=== PATIENT | male | born 1965 | race Caucasian/White ===

== ENCOUNTER 2017-04-06 18:16 | Emergency (ER) | payer BC ==
[~2017-04-06] VITALS: Ht 185.4 cm; Wt 104.3 kg
[~2017-04-06 18:16] MED LIST: ACETAZOLAMIDE250 M1 PO; AMITRIPTYLINE 225 MG PO; AMLODIPINE BES10 MG PO; AMLODIPINE10 M2 PO; ASPIR 8181 MG PO; ASPIRIN 81MG TA81 MG PO; BISOPROLOL 5MG T5 MG PO; CLARITIN 10MG T10 MG PO; COSOPT 2%-0.5%10 ML OP; D3-55000 IU PO; DEXILANT60 MG PO; DICLOFENAC SODI75 M2 PO; ESCITALOPRAM 2020 MG PO; GABAPENTIN100 M1 PO; GLIMEPIRIDE 2MG2 MG PO; HYDROCHLOROTH12.5 M1 PO; INSULIN GL100 UNITS/ SC; INVOKANA300 MG PO; JARDIANCE10 MG PO; JARDIANCE25 MG PO; LANSOPRAZOLE30 MG PO; LEVAQUIN500 MG PO; LEXAPRO 20 MG T20 MG PO; LISINOPRIL AND1 TAB PO; LYRICA 100 MG100 MG PO; LYRICA75 MG PO; MONTELUKAST SOD10 MG PO; MOTRIN 400MG.400 MG PO; NORCO 325 MG-51 TAB PO; NOVOLIN 70/30 710 ML SC; NOVOLOG MI100 UNITS/ SC; RANITIDINE HCL150 MG PO; SINGULAIR 10 MG10 MG PO; XALATAN 0.005%2.5 ML OP; ZYRTEC10 M2 PO
--- NOTE | 2017-04-06 18:50 | Urgent Treatment Center Report ---
History of Present Issue Date/Time Seen by Provider 04/06/17 1850 Visit Reason Pt arrived:Walked Presenting Problem:SORE THROAT, BODY ACHES, NON-PRODUCTIVE COUGH, AND FEVER X2 DAYS. Location if Accident: Onset of symptoms date/time:04/04/17 or onset unknown for: Have you (or family members/close friends) recently traveled outside the [place]? N If Yes, where/when: Have you had exposure to infectious disease within the past month? TB? Other? Specify: c/o sore throat, bodyaches, chills, fever w/ Tmax 102.4, mild cough all starting today. Woke up not feeling great but worse this afternoon. Grandson w/ similiar symptoms and sat on patient's lap yesterday. Tylenol and ibuprofen this evening has helped w/ fever. 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 FSBG up to high 500's after injection but 117 this morning. Source patient, family (spouse) Exam Limitations no limitations ALLERGIES Coded Allergies: flurbiprofen (From ANSAID) (I-RASH 12/25/15) Home Medications Reported Medications Diclofenac Sodium 75 MG PO BID #180 Empagliflozin (Jardiance) 25 MG PO DAILY CHOLECALCIFEROL (VITAMIN D3) (Vitamin D3) 5,000 UNITS PO DAILY Aspirin (Aspirin EC 81MG Tab) 81 MG PO DAILY INSULIN GLARGINE (Lantus 3ML Solostar Pen) 40 UNITS SC QHS Pregabalin (Lyrica 100Mg) 100 MG PO QHS #60 Montelukast Sodium 10 MG PO QHS #90 Amlodipine Besylate (Amlodipine Besylate) 10 MG PO DAILY #90 Escitalopram Oxalate (Lexapro 20MG) 20 MG PO DAILY Ins Asp-Prt 70/Asp 30(Nvlogmx) (Novolog Mix 70-30 Flexpen Syrn) 60 UNITS SC QAM #30 Amitriptyline Hcl (Amitriptyline) 50 MG PO QHS Hydrochlorothiazide (Hydrochlorothiazide 12.5MG) 25 MG PO DAILY BISOPROLOL FUMARATE (Bisoprolol 5MG) 10 MG PO DAILY Amitriptyline Hcl (Amitriptyline) 25 MG PO QAM INSULIN NPH HUM/REG INSULIN HM (Novolin 70-30 100 Unit/Ml Vial) 20 UNITS SC NOON INSULIN NPH HUM/REG INSULIN HM (Novolin 70-30 100 Unit/Ml Vial) 60 UNITS SC EVENING Lansoprazole (Lansoprazole) 30 MG PO BID Gabapentin (Gabapentin 100MG) 100 MG PO TID Acetazolamide (Acetazolamide) 250 MG PO QHS Latanoprost (Xalatan 0.005% Soln,Oph) 1 DROP OP QHS DORZOLAMIDE HCL/TIMOLOL (Dorzolamide-Timolol Eye Drops) 1 DROP OP BID History Medical History General CAD? No Angina: No VT: No Hypertension? Yes Hyperlipidemia? Yes CHF? No DVT? No PE? No COPD? No Asthma? No Anemia? No GERD? Yes Gastric ulcers? No GI Bleed? Yes Hernia? No Thyroid Problems? No Hypothyroidism? No CVA? No Seizures? No Diabetes? Yes Insulin Dependent: Yes Insulin Pump: No Home FSBS? Yes Renal Insuffiency? No UTI? No Stones? Yes BPH? Yes GB Disease: Yes Nephritic Syndrome? No Asplenia? No Hepatitis? No Sickle Cell Disease? No Arthritis? No Migraines? No Cataracts? Yes Glaucoma? No MRSA? No HIV? No TB? No Anxiety? Yes Depression? Yes Cancer? Yes Site: COLON More? No Additional hx: 1. Diverticulosis 2. HSV type 1 Immunization HX Ped.Immunizations UTD Yes DT/Tetanus > 10 Years Ago Flu Refused Pneumonia Unknown Surgical Hx Previous Surgery?Y CHOLECYSTECTOMY L. KNEE TURP Colon Procedures Family History Family HX Diabetes Yes CAD No Hypertension Yes Hyperlipidemia Yes Cancer Yes TB No Social History Smoking Hx Smoker: Never Smoker Tobacco: No Packs/day N/A Alcohol Alcohol: No Review of Systems All Other Systems Reviewed and Negative Constitutional see HPI, denies weakness Eyes see HPI ENT denies: ear pain, ear discharge, nose discharge, nose congestion, throat swelling. Respiratory denies shortness of breath, denies wheezing Cardiovascular denies chest pain, denies palpitations Gastrointestinal denies no symptoms reported Musculoskeletal see HPI Skin denies rash Psychiatric/Neurological see HPI Physical Exam Vital Signs Vital Signs Date Time Temp Pulse Resp B/P Pulse O2 O2 Flow FiO2 Ox Delivery Rate 04/06 1828 98.2 96 20 132/73 97 General Appearance normal appearance, no apparent distress Ear, Nose, Throat normal ENT inspection (x/ mild pharyngeal erythema) Neck normal inspection, non-tender, supple, full range of motion Respiratory Status Yes: non productive cough (occasionally in clinic). No: respiratory distress, use of accessory muscles. Lung Sounds anterior: lungs clear. posterior: lungs clear. bilateral: lungs clear. Cardiovascular regular rate/rhythm, no peripheral edema, no murmur Neurologic alert, oriented x 3 Mental status normal mood/affect Skin intact, normal color, warm/dry Lymphatic no adenopathy Medical Decision Making LABS/Meds/Orders Pt receiving controlled substance in ED? No Results/Orders Laboratory Tests 04/06/171906: Group A Strep Screen NOT DETECTED 04/06/171827: Influenza Type A Ag NOT DETECTED, Influenza Type B Ag NOT DETECTED Orders Procedure Date/time Status [facility] STREP SCREEN 04/06 1902 Complete UTC FLU A,B 04/06 1828 Complete Departure Departure Time of Disposition 1930 Disposition DC Home or Self Care(routine) Clinical Impression Primary Impression: Acute pharyngitis Qualifiers: Pharyngitis/tonsillitis etiology: unspecified etiology Qualified Code: J02.9 - Acute pharyngitis, unspecified Condition STABLE Referrals Parmjit LUNA,Kahlil (Family) Follow up IMMEDIATELY for new or worsening symptoms OR no noticeable improvement over the next 48-72 hours. 911 for difficulty breathing or swallowing. Patient Instructions DI for Viral Pharyngitis Additional Instructions * No sign of bacterial infection. Likely viral. Virus can take 7-14 days to run their course * Monitor Temp. Tylenol every 4 hours as needed and/or ibuprofen every 6 hours as needed (as long as your primary care doctor has told you that it is ok to take both) for fever/aches/pain. ER if fever no less than 101 despite tylenol and ibuprofen * Encourage fluids, water, gatorade, powerade, pedialyte if infant/toddler/child * warm salt water gargles * warm fluids * sore throat lozenges * sleep elevated * humidifier/vaporizer * Monitor FSBG closely. Discussed sick day mgmt/monitoring * * Your throat swab was sent for culture. Those results are typically sent to your primary care. Be sure to follow up in 2-3 days if no improvement so they can review those results and treat if necessary. If you don't have primary care, I recommend you get one but in the mean time, you will have to return to a walk in clinic. Follow up IMMEDIATELY for new or worsening symptoms OR no noticeable improvement over the next 48-72 hours. 911 for difficulty breathing or swallowing. Discharge Counseling Counseled pt/family regarding diagnosis, test results, medications/RX, home care, follow up needs at [phone]
--- OUTSIDE RECORDS SUMMARY | 2017-04-06 19:04 | External Medical Summary Rpt ---
Demographics Preferred Language Burkinan Marital Status Unknown Buddhism Affiliation Unknown Race Unknown Ethnic Group Unknown Author Author , Organization [employer] Address Unknown Phone Unavailable Purpose Continuity of Care Document - through 2016 Immunization No patient found.
--- OUTSIDE RECORDS SUMMARY | 2017-04-06 19:04 | External Medical Summary Rpt ---
Author Author [employer], [employer] Organization [employer] Address Unknown Phone Unavailable Results Glucose [Mass/volume] in Capillary blood by Glucometer Observa Value Referen Units Interpr Notes Date tion ce etation Range Glucose 70 - 110 mg/dl High No Mar 16 [Mass/vol informati 2017 ume] in on in 11:10 AM Capillary source blood by data Glucomete r
--- OUTSIDE RECORDS SUMMARY | 2017-04-06 19:04 | External Medical Summary Rpt ---
Demographics Preferred Language Citizen Of [place] Marital Status Unknown Gnosticism Affiliation Unknown Race Unknown Ethnic Group Unknown Author Author , Organization [employer] Address Unknown Phone Unavailable Purpose Continuity of Care Document - through 2016 Immunization No patient found.
--- OUTSIDE RECORDS SUMMARY | 2017-04-06 19:04 | External Medical Summary Rpt ---
Author Author [employer] Organization [employer] Address Unknown Phone Unavailable Purpose Continuity of Care Document - through 2016
[2017-04-06 19:35] VITALS: BP 132/73
== END 2017-04-06 19:38 | disposition home or self-care (01) ==
LOC: UTC 18:16
DX: J02.9 Acute pharyngitis, unspecified (principal)

== ENCOUNTER → 2017-06-18 | Outpatient (CLI) | payer BC ==
--- NOTE | 2017-06-19 06:59 | RADIOLOGY REPORT PS360 ---
MRI-L-SPINE W/O, MRI-3D RENDERING/MYELOGRAM HISTORY: Right-sided low back pain with bilateral leg pain and numbness LUMBAR PAIN ORDERING PHYSICIAN: LEEANN MATTA CRNA PATIENT AGE: 51 years COMPARISON: 05/13/2013 TECHNIQUE: Standard multiplanar multiecho sequences are performed without contrast. 3-D MIP and myelographic images are also rendered and reviewed FINDINGS: Spinal cord ends at the L1 level. T12-L1: Mild degenerative disc disease with slight decrease in the disc space and mild disc desiccation. There are small Schmorl's nodes at T12-L1 and L1-L2 L2-L3: Mild disc desiccation. L3-L4: Mild disc desiccation with some increased T2 signal involving the anterior aspect of the disc nonspecific. L4-L5: Unremarkable. L5-S1: Unremarkable. No disc herniation or canal stenosis. IMPRESSION: 1. There are mild changes at T12-L1 and L1-L2 with mild disc desiccation at L2-L3 and L3-L4. 2. No disc herniation or canal stenosis. 3. No significant change from 05/13/2013
== END ==
LOC: RAD 14:24
DX: M54.5 Low back pain (principal)

== ENCOUNTER → 2017-07-15 | Outpatient (CLI) | payer BC | LOC: LAB 16:22 | DX: N62 Hypertrophy of breast (principal) ==

== ENCOUNTER → 2017-07-22 | Outpatient (CLI) | payer BC ==
--- NOTE | 2017-07-22 15:56 | RADIOLOGY REPORT PS360 ---
MRI-BRAIN W/O HISTORY: ELEVATED PROLACTIN LEVELS, GYNECOMASTIA Patient Age: 51 years: Male Ordering Physician: Kahlil Parnell MD TECHNIQUE: Noncontrast imaging only was performed utilizing Multiplanar, multisequence imaging: FLAIR, T1, T2 weighted images along with axial diffusion/ADC imaging performed on 1.5 T. Siemens, MRI. Additional noncontrast thin section 3 mm coronal T1, T2 weighted fat sat, in sagittal T1 imaging performed on 1.5 T MR.. COMPARISON :MRI of the brain 06/04/2016 FINDINGS . At this visit additional noncontrast thin section images through sella show the sella to be normal size. Pituitary is not enlarged. On Close inspection would note that very slightly generous contour of the posterior margin of pituitary midline and just left of midline. This likely is within normal limits and I'm not convinced reflection the pathology. Dynamic pre and post contrast thin section MRI images of pituitary, would be be suggested if desire to further evaluate for small pituitary microadenoma; if would [employer] exchange architect.. . The remainder the brain with normal anatomy. The cranial cervical junction is normal. The ventricles and basal cisterns appear normal. Minor cerebral atrophy.. ] On sensitive FLAIR suggestion of a small stable very tiny tiny 2.5 mm high signal focus the deep white matter towards right frontal lobe axial image 14,. This is just lateral to the anterior horn right lateral ventricle.. And less evident on coronal. Unimpressive,, most likely reflecting small vessel ischemic focus. In this age.other possibilities considered but unlikely at this barely evident focus . There is a generous perivascular space versus possible tiny old lacunar at the posterior left basal ganglia on axial flair image 14 as well. Mild stable mucosal thickening posterior right maxillary sinus. Left maxillary sinus clear and other paranasal sinuses unremarkable.. Orbits appear satisfactory bilaterally. Opacification LEFT mastoid tip air cells along with other scattered left mastoid air cells reflecting mild mastoid effusion.. This is seen on previous 2016 exam Right mastoid air cells unremarkable IACs appear normal size. Cranial nerve VII and VIII appears satisfactory. IMPRESSION 1. Sella is normal size. Pituitary normal size. Not enlarged. Generous contour posterior particularly within normal limits. Most evident just left of midline Clearly no macro adenoma nor large pituitary lesion evident. However Cannot exclude a microadenoma Dynamic pre and post contrast thin section MRI images of pituitary, would be be suggested if desire to further evaluate for small pituitary microadenoma/- if would [employer] exchange architect.. 2. Stable minor observations -Stable Tiny deep white matter high signal focus right frontal lobe most likely small vessel high signal focus. Generous perivascular space vs tiny old lacune left basal ganglia. It -No prominent findings. No discrete significant appearing lesions. 3. Mild Left mastoid effusion w/ only very slight progression since 2016 & mainly involving left mastoid tip
== END ==
LOC: RAD 13:27
DX: E22.9 Hyperfunction of pituitary gland, unspecified (principal); N62 Hypertrophy of breast

== ENCOUNTER → 2017-08-06 | Outpatient (CLI) | payer BC | LOC: LAB 08-05 11:46 | DX: E22.9 Hyperfunction of pituitary gland, unspecified (principal) ==

== ENCOUNTER → 2017-08-12 | Outpatient (CLI) | payer BC ==
[2017-08-12 09:12] LABS: AEROMONAS NOT DETECTED (NOT DETECTE); ASTROVIRUS NOT DETECTED (NOT DETECTE); CYCLOSPORA CAYETANENSIS NOT DETECTED (NOT DETECTE); E COLI O157 NOT DETECTED (NOT DETECTE); ENTEROAGGREGATIVE E COLI NOT DETECTED (NOT DETECTE); ENTEROPATHOGENIC E COLI NOT DETECTED (NOT DETECTE); ENTEROTOXIGENIC E COLI NOT DETECTED (NOT DETECTE); NOROVIRUS NOT DETECTED (NOT DETECTE); SAPOVIRUS NOT DETECTED (NOT DETECTE); SHIGA-LIKE TOXIN PROD. E COLI NOT DETECTED (NOT DETECTE); SHIGELLA/ENTEROINVASIVE E COLI NOT DETECTED (NOT DETECTE); VIBRIO CHOLERAE NOT DETECTED (NOT DETECTE)
[2017-08-12 09:32] LABS: BUN 7 mg/dL (7-18); GFR (ESTIMATED) 63 ML/MIN (>60)
--- NOTE | 2017-08-13 10:51 | RADIOLOGY REPORT PS360 ---
CT ABD PELVIS W/ CONTRAST CLINICAL INDICATION: Diarrhea, colitis, colon cancer history with urgency, evaluate for colitis and fistula H/O COLON CA,DIARRHEA,R/O COLITIS ORDERING PHYSICIAN: Marin Jane MD PATIENT AGE: 51 years COMPARISON: 09/02/2016 TECHNIQUE: Axial images obtained with sagittal and coronal reformats. PROCEDURE: Oral Contrast: Redicat IV Contrast: 75 mL Isovue-370 . FINDINGS: Small hiatal hernia. Minimal atelectatic or fibrotic changes in the lung bases. There is gynecomastia on the right. Fatty infiltration of the liver. No focal liver lesions. Prior cholecystectomy without biliary dilatation. The spleen, adrenal glands, and pancreas are unremarkable. No renal mass or renal calculi or hydronephrosis evident. Scattered colonic diverticulosis. No evidence of diverticulitis, intestinal obstruction, or free air. There has been partial right hemicolectomy with ileocolic anastomosis at the hepatic flexure region. No evidence of obstruction or fistula. Small bowel has an unremarkable appearance. There is a small right paracentral ventral hernia in the supraumbilical region containing fat. No abnormal fluid collection. No acute bony anomalies. No evidence of aneurysm. IMPRESSION: 1. No acute intra-abdominal or pelvic pathology. 2. Postsurgical changes from prior partial right hemicolectomy and ileocolic anastomosis without evidence of fistula, obstruction, or air-fluid levels within the colon. 3. Other nonacute findings as described above
== END ==
LOC: RAD 09:10
PROVIDERS: Surgery
DX: R19.7 Diarrhea, unspecified (principal); Z85.038 Personal history of other malignant neoplasm of large intestine
CPT/HCPCS: Q9967

== ENCOUNTER 2017-09-25 10:03 | Day surgery (SDC) | payer BC ==
[~2017-09-25] VITALS: Ht 185.4 cm; Wt 106.6 kg
[~2017-09-25 10:03] MED LIST changes: +GABAPENTIN 600600 MG PO
[2017-09-25 10:12] VITALS: BP 150/93
[2017-09-25 10:25] VITALS: BP 150/93
[2017-09-25 10:31] VITALS: BP 188/98
--- NOTE | 2017-09-25 10:32 | Procedure Note ---
Procedure detail Date of procedure: 09/25/17 Anesthesiologist: Beto Pelayo MD Complications: None Pre-procedure diagnosis: Degenerative disc disease of the lumbar spine with lumbar radiculopathy symptoms. Degenerative disc disease of the cervical spine with cervical radiculopathy symptoms. Post-procedure diagnosis: Same Indications for procedure: This patient's a pleasant 51-year-old white male who we have been treating for chronic cervical neck pain secondary to degenerative disease cervical spine multiple levels and cervical radiculopathy symptoms. Also, lumbar back pain secondary to degenerative disease lumbar spine and disc bulge multilevel lumbar spine with lumbar radiculopathy symptoms. Patient states low back pain gets worse with standing for any length of time. Also bilateral hip and leg radicular symptoms. We discussed lumbar epidural steroid injection. He wishes to proceed. We will do a lumbar epidural steroid injection under fluoroscopy today to see if this helps with his pain symptoms. Procedure detail: Procedure: Lumbar epidural steroid injection under fluoroscopy Informed consent was obtained and the risks and benefits of the procedure were explained to the patient. The patient was taken to the procedure room and noninvasive monitors placed, including noninvasive blood pressure cuff and pulse oximeter. The back was viewed using C-arm Fluoroscopy and prepped using Betadine as a cleansing solution and the L4-L5 interspace was palpated. Skin and subcutaneous tissues were anesthetized using lidocaine 1.5% and a 25-gauge needle. After this, an 18-gauge Touhy epidural needle was placed into the L4-L5 interspace and advanced using fluoroscopic guidance and loss of resistance to air until the epidural space was encountered. After confirmation of needle placement in the epidural space, with dye, a solution containing lidocaine 1.5%, 4 mL and Depo-Medrol 80 mg were incrementally injected into the lumbar epidural space. The patient tolerated the procedure well with no complications. The patient was observed in the Pain Clinic and then discharged home neurologically intact. Plan and disposition: We will follow-up with this patient in 2 weeks. We'll reevaluate his symptoms at that time. at 1290
[2017-09-25 10:57] VITALS: BP 152/96
== END 2017-09-25 10:50 | disposition home or self-care (01) ==
LOC: PM 10:03
PROC: 3E0R3BZ Introduction of Anesthetic Agent into Spinal Canal, Percutaneous Approach (ICD-10-PCS; principal; 2017-09-25)
PROC: 3E0R33Z Introduction of Anti-inflammatory into Spinal Canal, Percutaneous Approach (ICD-10-PCS; 2017-09-25)
PROC: B01B1ZZ Fluoroscopy of Spinal Cord using Low Osmolar Contrast (ICD-10-PCS; 2017-09-25)
DX: M51.16 Intervertebral disc disorders with radiculopathy, lumbar region (principal); M50.10 Cervical disc disorder with radiculopathy, unspecified cervical region
CPT/HCPCS: J1040; Q9966